=== PATIENT | male | born 1980 | race Caucasian/White ===

== ENCOUNTER 2021-04-06 13:48 | Emergency (ER) | payer OTHER, SELFPAY ==
[2021-04-06 14:23] VITALS: BP 104/71; PULSE 82; RESP 16; TEMP 37.7; O2SAT 99
--- NOTE | 2021-04-06 15:07 | ED.ABDPAIN ---
HPI - Abdominal Pain General Chief Complaint: Abdominal Pain Stated Complaint: Abdominal pain Time Seen by Provider: 04/06/21 15:10 Source: patient and RN notes reviewed Mode of arrival: ambulatory Limitations: no limitations History of Present Illness HPI narrative: 40-year-old male presents concern for abdominal pain. Reports earlier today while at work he was lifting a flat of heavy cans when he felt a sudden sharp pain to the right above his umbilicus. Reports the pain made him feel nauseated, he felt a bulge, rubbed and massage the area and the bulge went away. Reports pain has decreased from a 10/10 to a 3/10. Reports going from a sitting to lying position exacerbates the pain. He denies vomiting or diarrhea. Denies history of constipation. MD elicited complaint: abdominal pain Related Data Home Medications Medication Instructions Recorded Confirmed No Home Medications 04/06/21 04/06/21 Allergies Allergy/AdvReac Type Severity Reaction Status Date / Time No Known Allergies Allergy Unverified 03/07/13 01:42 Review of Systems Review of Systems: CONSTITUTIONAL: Denies malaise, chills, sweats, or fever. CARDIOVASCULAR: Denies chest pain, palpitations, or edema. RESPIRATORY: Denies cough or dyspnea. GASTROINTESTINAL: Reports abdominal pain. Denies nausea, vomiting, diarrhea, bloody, or mucous stools. SKIN: Denies rash or itching. MUSCULOSKELETAL: Denies back pain, joint pain, or myalgia. NEUROLOGIC: Denies numbness, weakness, or headache. All systems reviewed & are unremarkable except as noted in HPI and below PMFSH Comments At time of signature, agree with nursing past medical, surgical, social and family history. There is no relevant family history pertinent to the presenting complaint Exam Narrative: GENERAL: Well-appearing, well-nourished, and in no acute distress. HEAD: Normocephalic, atraumatic. EYES: PERRLA, conjunctivae clear, and EOMI. ENT: Nares clear, turbinates pink, no rhinorrhea or epistaxis. Mucous membranes moist. Oropharynx without edema, erythema, or lesions. Tonsils not enlarged and without exudate. NECK: Supple. No lymphadenopathy CHEST: Speaks in full sentences. No respiratory distress. HEART: Regular rate and rhythm. ABDOMEN: Soft, flat, nondistended. Mild tenderness and mild guarding to the right above the umbilicus. No rebound tenderness or rigidity. No masses or pulsatille masses. Bowel sounds present in all four quadrants. No organomegaly. Negative Pratt?s sign. No periumbilical tenderness. No Supra public tenderness or distension. No hernia noted. No scars or surface trauma. SKIN: Warm, dry, no rash. NEURO: Alert and oriented x3. PSYCH: Normal mood and affect Course Course Emergency Course: Discussed limited diagnostic capability at the [facility] for abdominal pain. Discussed transfer to the emergency room for further evaluation versus following up with PCP or general surgery for reevaluation. Patient does not choose to go to the emergency room at this time. He states he would rather follow-up tomorrow. Patient was given reasons to go to the emergency room if symptoms worsen or Patient is aware of diagnosis, understands and agrees to treatment plan. Anticipatory guidance given. Patient agrees to follow-up as directed and is aware of reasons to seek care at the emergency department. Portions of this record may have been created with voice recognition software Level of Care: Express Care Visit Vital Signs Vital signs: Vital Signs Temperature 99.8 F H 04/06/21 14:23 Pulse Rate 82 04/06/21 14:23 Respiratory Rate 16 04/06/21 14:23 Blood Pressure 104/71 04/06/21 14:23 Pulse Oximetry 99 04/06/21 14:23 Temperature 99.8 F H 04/06/21 14:23 Pulse Rate 82 04/06/21 14:23 Respiratory Rate 16 04/06/21 14:23 Blood Pressure 104/71 04/06/21 14:23 Pulse Oximetry 99 04/06/21 14:23 Reviewed. MDM - Abdominal Pain MDM Narrative Medical decision ma
== END 2021-04-06 15:33 | disposition home or self-care (01) ==
PROVIDERS: Emergency Provider Nurse Practitioner
DX: R10.33 Periumbilical pain (principal)
CPT/HCPCS: 99211; G0463

== ENCOUNTER 2021-04-24 09:56 | Outpatient (CLI) | payer OTHER, SELFPAY ==
--- NOTE | ~2021-04-24 | CT_ITS ---
EXAMINATION: CT abdomen pelvis w con INDICATION: Umbilical hernia without obstruction or gangrene TECHNIQUE: Computed tomographic images of the abdomen and pelvis were obtained after the administrati on of 100 cc of Omnipaque 350 intravenous contrast. The dose-length product (DLP) was 877.46 mGy-cm. Automated exposure control and iterative reconstruction technique were employed. COMPARISON: None available FINDINGS: The lung bases are clear. The heart size is normal. The liver, spleen, pancreas, gallbladde r, and adrenal glands are normal. The right kidney is unremarkable. Nonobstructing stones of the left kidney measure up to 3 mm. No pathologically enlarged abdominal or pelvic lymph nodes are identified . There is no free intraperitoneal gas or evidence of bowel obstruction. The appendix is normal. Ther e is a small fat-containing umbilical hernia. There is a small to moderate-sized midline ventral shanika ia located approximately 3.6 cm cranial to the umbilicus which contains a small amount of fat. The he rnia neck measures approximately 10 mm. There is mild stranding of the fat within the hernia. There i s mild lumbar spondylosis. IMPRESSION: 1. Small to moderate-sized ventral hernia approximately 3.6 cm cranial to the umbilicus with a 10 mm neck and containing fat with minimal associated stranding. Reviewed, dictated and finalized at location [facility] IMPRESSION: 1. Small to moderate-sized ventral hernia approximately 3.6 cm cranial to the u mbilicus with a 10 mm neck and containing fat with minimal associated stranding .
== END 2021-04-24 09:57 | disposition home or self-care (01) ==
LOC: ANHIMG 10:01
PROVIDERS: Visit Provider Surgery
DX: K42.9 Umbilical hernia without obstruction or gangrene (principal); K40.90 Unilateral inguinal hernia, without obstruction or gangrene, not specified as recurrent
CPT/HCPCS: 74177; Q9967

== ENCOUNTER → 2021-05-17 00:04 | Outpatient (CLI) | payer OTHER, SELFPAY ==
[2021-05-17 12:00] LABS: SARS-CoV-2 RNA PCR Negative
== END ==
PROVIDERS: Visit Provider Surgery
DX: Z01.812 Encounter for preprocedural laboratory examination (principal); Z20.822 Contact with and (suspected) exposure to COVID-19
CPT/HCPCS: C9803; U0003; U0005

== ENCOUNTER 2021-05-19 13:52 | Outpatient (CLI) | payer OTHER, SELFPAY ==
--- NOTE | 2021-05-19 13:56 | ECG_ITS ---
Measurements Intervals [place] Rate: 82 P: 32 [place]: 100 QRS: 45 QRSD: 118 T: 48 QT: 380 QTc: 445 Interpretive Statements SINUS RHYTHM WITH SHORT [place] INTERVAL INCOMPLETE RIGHT BUNDLE BRANCH BLOCK BASELINE ARTIFACT- I, II, III, AVR, AVL, V4 BORDERLINE ECG Electronically Signed On 05-19-2021 15:17:16 SMOKE CHASER by Yan Chauhan D.O.
[2021-05-19 14:36] LABS: Basophils Absolute Auto 0.1 K/mm3 (0.0-0.1); Basophils Percent Auto 0.8 % (0.2-1.2); Eosinophils Absolute Auto 0.2 K/mm3 (0-0.3); Eosinophils Percent Auto 2.8 % (0-4.4); Hematocrit 44.9 % (42.0-52.0); Hemoglobin 15.4 g/dL (14.0-18.0); Immature Granulocyte Absolute 0.02 K/mm3 (0.00-0.031); Immature Granulocyte Percent A 0.2 % (0-0.5); Lymphocytes Absolute Auto 3.77 K/mm3 (0.9-3.2); Lymphocytes Percent Auto 45.3 % (18.3-44.2); Mean Corpuscular HGB Conc 34.3 g/dl (32-36); Mean Corpuscular Hemoglobin 28.2 pg (26-34); Mean Corpuscular Volume 82.2 fl (80-100); Monocytes Absolute Auto 0.6 K/mm3 (0.1-0.6); Monocytes Percent Auto 6.6 % (2.6-8.5); Neutrophils Absolute Auto 3.7 K/mm3 (1.3-6.7); Neutrophils Percent Auto 44.3 % (45.5-73.1); Platelet Count Result 230 k/mm3 (150-375); Red Blood Count 5.46 M/mm3 (4.6-6.20); Red Cell Distribution Width 14.1 % (11.5-14.5); White Blood Count 8.3 K/mm3 (4.5-10.0)
[2021-05-19 14:46] LABS: Alanine Aminotransferase 19 U/L (4-50); Albumin Level 4.5 g/dL (3.5-5.1); Alkaline Phosphatase 50 U/L (38-126); Anion Gap 8 mmol/L (8-16); Aspartate Amino Transferase 23 U/L (17-59); Bilirubin,Total 0.4 mg/dL (0.2-1.3); Blood Urea Nitrogen 13 mg/dL (9-20); Calcium 8.9 mg/dL (8.4-10.2); Carbon Dioxide 27 mmol/L (22-30); Chloride 104 mmol/L (98-107); Estimated Glomerular Filt Rate > 60; Glucose 95 mg/dL (65-110); Potassium 3.5 mmol/L (3.4-5.0); Sodium 139 mmol/L (137-145)
== END 2021-05-19 13:53 | disposition home or self-care (01) ==
LOC: ANHSURGERY 13:55
PROVIDERS: Visit Provider Surgery
DX: Z01.818 Encounter for other preprocedural examination (principal); K43.9 Ventral hernia without obstruction or gangrene; Z72.0 Tobacco use
CPT/HCPCS: 36415; 80053; 85025; 86850; 86900; 86901; 93005

== ENCOUNTER 2021-05-21 02:32 | Day surgery (SDC) | payer OTHER, SELFPAY ==
[2021-05-12 12:25] VITALS: BMI 29.9
--- NOTE | 2021-05-12 12:36 | PC.NURSE ---
Report to the Outpatient Waiting Room, entrance under the green pavilion located off [facility], at time 10:00 on date 05/21/21. OR Time: 12:00. - You will be asked a series of questions to screen for COVID 19 for your protection. - A mask is required within the hospital. - No visitors are allowed at this time. Preoperative COVID Testing Requirements: COVID TEST 05/17 AT 9:40 No COVID Test needed if: (proof is required; if not received patient will have Rapid Test prior to entry) - Patient has received COVID Vaccine at least 14 days prior to procedure date or - Patient has positive COVID test result within last 90 days of surgery date. COVID Test needed if above criteria is not met If not COVID vaccinated a COVID test must be conducted within 72 hours of surgery and patient is asked to isolate self from time of testing until procedure. You will go to the [facility] for your COVID testing. The [facility] is located at the corner of [address] [facility]. You will only be called if COVID results are positive and your surgeon may reschedule your elective surgery date. Patients may have clear liquids (water, carbonated beverages, clear teas, apple juice) until 3 hours prior to surgery (9:00) with a maximum of 20 ounces. - No food from midnight until time of surgery Take the following medications with a SIP of water the morning of surgery: NONE Medications to discontinue per physician: N/A Date to take last dose: N/A Please no make-up, nail kyrgyz, hairspray, perfume, deodorant, or body powder the day of surgery. No jewelry (including any body piercings) or valuables the day of surgery, leave them at home. Please take a shower or bath the night before, or the morning of, surgery with an antibacterial soap. Wear comfortable, loose fitting clothing. HIBICLENS SHOWER - Jewelry must be removed prior to entering the operating room. Rings and piercings that are not removed may be cut off. - The hospital will not accept responsibility for valuables. - Please leave all valuables, including medications, at home the day of surgery. If you are going home after surgery, a licensed drive away driver must drive you home. - NO public transportation without another adult. - We recommend that an adult stay with you for 24 hours following discharge. - We also recommend that you do not drive, make important decision, drink alcoholic beverages, or take any drugs that were not prescribed by your health care provider for at least 24 hours after your discharge time. Follow any additional instructions given to you from your surgeon. Telephone instructions given to RONEN MÉNDEZ and asked if any additional questions and then verbalized understanding. Patient advised to call surgeon office or pre surgery nurse liaison [phone] if any additional questions.
[2021-05-21] VITALS (9 sets, daily range): BP systolic 108–128; BP diastolic 68–87; PULSE 62–90; RESP 12–16; TEMP 36.4–36.6; O2SAT 92–100
[2021-05-21] MEDS: ACETAMINOPHEN 500 MG TABLET 1000 MG PO (10:27)
[2021-05-21] MEDS: KETOROLAC 15 MG/ML VIAL (*BKC) IV PUSH (10:57)
--- NOTE | 2021-05-21 11:23 | WPDANESEPPF ---
Anes - Initial Pre Proc Eval Procedure: Operation Date: 05/21/21 12:00 Proposed Procedures p Laparoscopic Epigastric Hernia Repair with Mesh - Tadeo Boo MD Date/Time: 05/21/21 11:23 Surgeon: Tadeo Boo MD Pre Op Diagnosis: Epigastric Hernia Patient Data Age: 41 Gender: M Height: 1.84 m Weight: 96.15 kg Last Vital Signs Temp 36.6 C 05/21/21 10:16 Pulse 90 05/21/21 10:16 Resp 16 05/21/21 10:16 BP 116/68 05/21/21 10:16 Pulse Ox 100 05/21/21 10:16 Allergies Allergy/AdvReac Type Severity Reaction Status Date / Time No Known Allergies Allergy Verified 05/21/21 10:24 Home Medications Medication Instructions Recorded Confirmed Type multivitamin 1 tablet PO DAILY 05/12/21 05/21/21 History Patient hx anesthesia problems: none Family hx anesthesia problems: none Results Review: All pre-operative results and documents have been reviewed as part of the pre-operative evaluation. [facility] Past Medical History Medical History (Updated 04/30/21 @ 13:14 by Kay Lemon) Asthma High cholesterol Hypertension Surgical History Surgical History No history of previous surgery Family History Family History Other Allergy Asthma Cancer Diabetes mellitus Social History Social History Smoking packs per day: 1 Smoking cigarettes per day: 20.0 Years smoked: 22 Smoking pack-years: 22.00 Smoking status: Current every day smoker Tobacco type: cigarettes Alcohol intake: current Drinks per week: 12 Alcohol use details: BEER Substance use: never Substance use type: does not use Living arrangements: with family Additional occupation/education comments: [employer] Spiritual care concerns: No Anes - Eval Final PreProcedure Day of Procedure 05/21/21 11:23 Patient weight: overweight Heart: regular rate and rhythm Lungs: clear to auscultation Airway: Mallampati scale class II Neurological: alert and oriented Last oral intake: >/= 8 hours ASA classification: II Emergent: no Anesthetic plan: proceed Anesthesia type and monitoring: general ETT and standard monitoring Results Review: All pre-operative results and documents have been reviewed as part of the pre-operative evaluation. Informed Consent: The patient's anesthetic plan and its attendant risks and benefits were discussed with the patient/family/POA. Questions were solicited and answers provided to the satisfaction of the patient/family/POA.
--- NOTE | 2021-05-21 11:33 | PM.HPGS ---
History of Present Illness History of Present Illness Consent: Risks, benefits, and alternatives of laparoscopic ventral hernia repair with mesh ( epigastric and umbilical ) have been discussed and questions answered. Patient agrees to proceed with the procedure. Chief complaint: Epigastric Hernia Narrative: Jak Hudson is a 41 year old male Mr. Hudson presented to the office 1 month ago with complaints of upper mid abdominal pain. He reported that while at work on 04/06/2021, when lifting heavy flats of cans, he suddenly developed sharp jayden-umbilical pain that worsened throughout the day. The pain caused him to be nauseated and he notes being able to feel some associated bulging at the site which he was able to massage and reduce. He presented to Urgent Care and no definite hernia was able to be palpated. No imaging was able to be performed. He has been resting and avoiding physical exertion over the last 5 days to help reduce tenderness. He denies changes to bowel habits, nausea, or vomiting. Review of Systems Constitutional: Constitutional: Reports no additional constitutional complaints, Reports fatigue and Denies malaise Eyes: Eyes: Denies change in vision and Denies loss of vision ENT: Reports Normal hearing present, Denies change in voice, Denies dizziness, Denies hoarseness and Denies sore throat Cardiovascular: Cardiovascular: Denies chest pain, Denies leg edema and Denies dyspnea Respiratory: Respiratory: Denies cough, Denies dyspnea and Denies wheezing Gastrointestinal: Gastrointestinal: Denies hematochezia, Denies change in bowel habits, Denies heartburn, Denies diarrhea, Denies loose stools and Denies nausea Genitourinary: Genitourinary: Denies urinary frequency and Denies urinary incontinence Neurologic: Reports Normal hearing present, Denies confusion, Denies dizziness, Denies loss of vision, Denies memory loss and Denies seizure-like activity Psychiatric: Psychiatric: Denies confusion, Denies depression and Denies memory loss Endocrine: Endocrine: Denies cold intolerance and Reports fatigue Hematologic/Lymphatic: Hematologic/Lymphatic: Denies easy bleeding and Denies easy bruising Allergic/Immunologic: Allergic/Immunologic: Denies wheezing PMFSH Past Medical History Medical History Asthma High cholesterol Hypertension Surgical History Surgical History No history of previous surgery Family History Family History Other Allergy Asthma Cancer Diabetes mellitus Social History Social History Smoking packs per day: 1 Smoking cigarettes per day: 20.0 Years smoked: 22 Smoking pack-years: 22.00 Smoking status: Current every day smoker Tobacco type: cigarettes Alcohol intake: current Drinks per week: 12 Alcohol use details: BEER Substance use: never Substance use type: does not use Living arrangements: with family 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- [employer] Spiritual care concerns: No Meds Home Medications and Allergies Home Medications Medication Instructions Recorded Confirmed Type multivitamin 1 tablet PO DAILY 05/12/21 05/21/21 History hydrocodone-acetaminophen 1 tablet PO Q6H PRN #30 tablet 05/21/21 Rx Allergies Allergy/AdvReac Type Severity Reaction Status Date / Time No Known Allergies Allergy Verified 05/21/21 10:24 Vital Signs Vital Signs - 24 hr 05/21/21 10:16 Temperature 36.6 C Pulse Rate 90 Respiratory Rate 16 Blood Pressure 116/68 Pulse Oximetry 100 Exam Const: General: cooperative, healthy appearing, no acute distress, well developed and alert; No confusion Nutritional Appearance: well nourished Orientation/consciousness: patient oriented x3 and No confusion Limi
[2021-05-21] MEDS: LACTATED RINGERS 1,000 ML 30 ML IV CONT ×2 (11:45→13:55)
--- NOTE | 2021-05-21 11:56 | WPDHPUPDATE1 ---
History and Physical Update Update Date/Time: 05/21/21 11:56 History and Physical has been reviewed, including an updated exam of the patient. There are NO changes in the patient's condition. Risks, benefits, and alternatives of a laparoscopic epigastric and umbilical hernia repair with mesh have been discussed and questions answered. Patient agrees to proceed with procedure.
[2021-05-21] MEDS: ceFAZolin 2 GM/D5W 50 ML 2 GM/50 ML BAG IVPB (12:05)
[2021-05-21] MEDS: BUPIVACAINE/EPINEPHRINE 0.5% 10 ML VIAL 24 ML INFILTRATE (13:43)
[2021-05-21] MEDS: fentaNYL CITRATE INJ (*CRX) 100 MCG/2 ML VIAL 25 MCG IV PUSH ×3 (14:06→14:34)
[2021-05-21] MEDS: ONDANSETRON INJ 4 MG/2 ML VIAL IV PUSH (14:12)
--- NOTE | 2021-05-21 14:14 | W.PM.PROC2 ---
Procedure Note - Detailed Date of Procedure 05/21/21 Pre-op Diagnosis Epigastric Hernia Post-op Diagnosis same Procedure Performed Laparoscopic umbilical hernia repair with mesh Surgeon Tadeo Boo MD Traffic Rate Clerk Caty CARLOS, OR news assistant Anesthesia general Indications Patient had pain and continuing discomfort after lifting at work. CT scan showed both a very small umbilical hernia and a more significant epigastric hernia 3-4 cm above the level of the umbilicus. Since patient was continuing to have pain plan was made for hernia repair. Findings Patient had an oval 12 x 5 mm defect right where his falciform and did a little bit above the level of his umbilicus and there was some preperitoneal fat up in this. Separately he had a definite small weakness in the base of his umbilicus. Careful examination revealed no obvious inguinal hernia on either side. Description of Procedure DESCRIPTION OF PROCEDURE: The patient was placed in the supine position on the operative table and after induction of adequate general endotracheal anesthesia by [facility] Anesthesia, the entire abdomen was prepped and draped in usual sterile fashion and the head placed slightly up. An Ioban drape was used to prevent contact of the mesh with the skin during this clean case. Following this, local anesthetic was placed in a spot selected about two fingerbreadths below the costal margin on the left and a small incision made after instilling local anesthetic using 0.25% Marcaine with epinephrine. Following this, a Veress needle technique using the water drop test was completed. Using 2 towel clips on the skin, I carefully elevated the skin and then passed the Veress needle into the abdomen and we could see that the saline droped through the Veress needle easily. CO2 gas was connected and the abdomen was insufflated to 14 mm Hg pressure. Following this, the 0 degree 5 mm laparoscope was placed inside a 5 mm trocar, which was carefully twisted into the abdomen without difficulty, seeing a open pneumoperitoneum as we entered. Thus, the trocar was removed, the sleeve confirmed to be nicely within the abdomen, and we carefully inspected the anterior abdomen. Careful inspection of the abdomen revealed no inguinal hernias. A small defect in the umbilicus that was actually difficult to see initially, but after placing a 12 mm port in the left lower quadrant under direct vision with the laparoscope, we could see up into a 10 mm defect that had been measured then with an instrument with a known cm marker. There was no incarceration of any omentum or any other adhesions to the underside of the umbilicus. There was fat from the urachus coming up into the area which might inhibit the tacks that I was planning to place through the mesh, therefore this was taken down with Bovie cautery. There was also some fat along the midline extending up to the falciform ligament. I also took this down and removed that preperitoneal fat. Also seen was a approximately 12 by 6 mm defect extending through midline fascia right where the falciform ended inferiorly. This patient's falciform actually ended about 3 cm cephalad to his umbilicus. A small piece of fat was excised from this area and any fat removed was felt to be preperitoneal fat and fat from the epigastric hernia and that was sent for pathology. We had a little bleeding from this, and lost about 5 mL of blood. This was nicely cauterized and then moved out of the way. This was pre-peritoneal fat and it was removed from the abdomen and passed off the field as specimen. Following this, we carefully planned by measuring the defects. Our mesh, a circular 11 cm piece of Ventra-lite Echo II mesh was chosen, so that we would have 3.5 cm of overlap in the superior direction from the epigastric hernia and perhaps 2.5 cm inferior to the weakness under the umbilicus. Following this, the Ventra-lite Echo II hernia system mesh was rolled and this was
== END 2021-05-21 15:45 | disposition home or self-care (01) ==
PROVIDERS: Visit Provider Surgery
PROC: (CPT 49652; principal; 2021-05-21 12:00)
DX: K43.9 Ventral hernia without obstruction or gangrene (principal); K42.9 Umbilical hernia without obstruction or gangrene; F17.210 Nicotine dependence, cigarettes, uncomplicated
CPT/HCPCS: 49652; S2900; 88302; 88304; A9270; C1781; J0690; J1100; J1170; J1885; J2250; J2370; J2405; J2704; J2710; J3010; J7120